=== PATIENT | male | born 1940 | race Caucasian/White ===

== ENCOUNTER 2021-02-07 09:54 | Outpatient (REF) | payer MEDICARE, SELFPAY ==
[2021-02-07 11:03] LABS: MANUAL DIFF FLAG NO
[2021-02-07 11:26] LABS: Basophils Absolute Auto 0.1 X10*3/uL (0.0-0.2); Basophils Percent Auto 1.3 % (0-2); Eosinophils Absolute Auto 0.2 X10*3/uL (0.0-0.4); Eosinophils Percent Auto 2.4 % (0-4); Hematocrit 44.3 % (42-52); Hemoglobin 14.5 g/dl (14.0-18.0); Imm Gran Abs Auto 0.03 X10*3/uL (0.00-0.03); Imm Gran Pct Auto 0.4 % (0.0-0.4); Lymphocytes Absolute Auto 1.2 X10*3/uL (1.2-4.9); Lymphocytes Percent Auto 18.4 % (20-40); Mean Corpuscular HGB Conc 32.7 g/dl (31.0-36.0); Mean Corpuscular Hemoglobin 31.3 pg (27.0-33.0); Mean Corpuscular Volume 95.5 fL (80-98); Mean Platelet Volume 9.5 fL (9.4-12.4); Monocytes Absolute Auto 0.6 X10*3/uL (0.1-1.2); Monocytes Percent Auto 9.6 % (2-11); Neutrophils Absolute Auto 4.6 X10*3/uL (2.0-8.3); Neutrophils Percent Auto 67.9 % (45-73); Platelet Count 308 X10*3/uL (160-400); Red Blood Count 4.64 X10*6/uL (4.60-5.80); Red Cell Distribution Width 13.5 % (11.0-16.0); White Blood Count 6.7 X10*3/uL (4.8-10.8)
[2021-02-07 11:32] LABS: Alanine Aminotransferase 16 U/L (0-40); Albumin Level 4.4 g/dL (3.5-5.0); Alkaline Phosphatase 70 U/L (39-117); Anion Gap 14 (12-20); Aspartate Amino Transferase 17 U/L (5-37); B Type Natriuretic Peptide 345 pg/mL (<100); Bilirubin Total 0.6 mg/dL (0.0-1.0); Blood Urea Nitrogen 25 mg/dL (9-16); Calcium 9.7 mg/dL (8.4-10.2); Carbon Dioxide 23 mmol/L (22-29); Chloride 106 mmol/L (96-108); Estimated Glomerular Filt Rate 59; Glucose Random 110 mg/dL (60-115); Potassium 4.4 mmol/L (3.3-5.1); Sodium 139 mmol/L (135-145)
== END 2021-02-07 09:55 | disposition home or self-care (01) ==
LOC: HO.MANLDS 09:54
PROVIDERS: PCP Internal Medicine; Visit Provider Internal Medicine
DX: Z01.818 Encounter for other preprocedural examination (principal)
CPT/HCPCS: 36415; 80053; 83880; 85025

== ENCOUNTER 2021-03-05 10:16 | Outpatient (REF) | payer MEDICARE, SELFPAY ==
[2021-03-05 12:56] LABS: Glucose Urine UA NEG (NEG); Leukocyte Esterase Urine NEG (NEG); Nitrite Urine NEG (NEG); Urine Blood NEG (NEG); Urine Ketones NEG (NEG); Urine Protein TRACE MG/DL (NEG-TRACE)
[2021-03-05 12:57] LABS: Appearance Urine CLEAR; Color Urine YELLOW
== END 2021-03-05 10:17 | disposition home or self-care (01) ==
LOC: HO.MANLNP 10:16
PROVIDERS: PCP Internal Medicine; Visit Provider Internal Medicine
DX: R30.9 Painful micturition, unspecified (principal)
CPT/HCPCS: 81003

== ENCOUNTER 2022-03-02 11:01 | Outpatient (REF) | payer MEDICARE, SELFPAY ==
[2022-03-02 13:52] LABS: MANUAL DIFF FLAG NO
[2022-03-02 14:00] LABS: Basophils Absolute Auto 0.1 X10*3/uL (0.0-0.2); Basophils Percent Auto 1.7 % (0-2); Eosinophils Absolute Auto 0.2 X10*3/uL (0.0-0.4); Eosinophils Percent Auto 2.2 % (0-4); Hematocrit 42.6 % (42.0-52.0); Hemoglobin 13.8 g/dl (14.0-18.0); Imm Gran Abs Auto 0.01 X10*3/uL (0.00-0.03); Imm Gran Pct Auto 0.1 % (0.0-0.4); Lymphocytes Percent Auto 13.3 % (20-40); Mean Corpuscular HGB Conc 32.4 g/dl (31.0-36.0); Mean Corpuscular Hemoglobin 31.7 pg (27.0-33.0); Mean Corpuscular Volume 97.7 fL (80.0-98.0); Monocytes Absolute Auto 0.7 X10*3/uL (0.1-1.2); Monocytes Percent Auto 9.1 % (2-11); Neutrophils Absolute Auto 5.4 x10*3/uL (2.0-8.3); Neutrophils Percent Auto 73.6 % (45-73); Platelet Count 347 X10*3/uL (160-400); Red Blood Count 4.36 X10*6/uL (4.60-5.80); Red Cell Distribution Width 13.4 % (11.0-16.0); White Blood Count 7.3 X10*3/uL (4.8-10.8)
[2022-03-02 14:14] LABS: Estimated Average Glucose 100 mg/dL; Hemoglobin A1c % 5.1 %
[2022-03-02 14:42] LABS: Alanine Aminotransferase 15 U/L (0-40); Albumin Level 4.3 g/dL (3.5-5.0); Alkaline Phosphatase 69 U/L (39-117); Anion Gap 18 (12-20); Aspartate Amino Transferase 18 U/L (5-37); Bilirubin Total 0.5 mg/dL (0.0-1.0); Blood Urea Nitrogen 32 mg/dL (9-16); Calcium 9.6 mg/dL (8.4-10.2); Carbon Dioxide 24 mmol/L (22-29); Chloride 103 mmol/L (96-108); Estimated Glomerular Filt Rate 53; Glucose Random 111 mg/dL (60-115); Potassium 5.1 mmol/L (3.3-5.1); Sodium 140 mmol/L (135-145); Total Protein 7.1 g/dL (6.5-8.0)
[2022-03-04 05:03] LABS: Lyme Abs Screen <0.90 index
== END 2022-03-02 11:02 | disposition home or self-care (01) ==
LOC: HO.MANLDS 11:01
PROVIDERS: Visit Provider Internal Medicine
DX: I10 Essential (primary) hypertension (principal); R73.01 Impaired fasting glucose; T14.8XXA Other injury of unspecified body region, initial encounter; W57.XXXA Bitten or stung by nonvenomous insect and other nonvenomous arthropods, initial encounter
CPT/HCPCS: 36415; 80053; 83036; 85025; 86617; 86618

== ENCOUNTER 2022-06-01 09:24 | Outpatient (REF) | payer MEDICARE, SELFPAY ==
[2022-06-01 11:21] LABS: MANUAL DIFF FLAG NO
[2022-06-01 11:47] LABS: Basophils Absolute Auto 0.1 X10*3/uL (0.0-0.2); Basophils Percent Auto 1.6 % (0-2); Eosinophils Absolute Auto 0.1 X10*3/uL (0.0-0.4); Eosinophils Percent Auto 1.7 % (0-4); Hematocrit 44.2 % (42.0-52.0); Imm Gran Abs Auto 0.02 X10*3/uL (0.00-0.03); Imm Gran Pct Auto 0.3 % (0.0-0.4); Lymphocytes Absolute Auto 1.3 X10*3/uL (1.2-4.9); Lymphocytes Percent Auto 21.8 % (20-40); Mean Corpuscular HGB Conc 31.7 g/dl (31.0-36.0); Mean Corpuscular Volume 97.8 fL (80.0-98.0); Mean Platelet Volume 9.2 fL (9.4-12.4); Monocytes Absolute Auto 0.7 X10*3/uL (0.1-1.2); Monocytes Percent Auto 12.5 % (2-11); Neutrophils Absolute Auto 3.6 x10*3/uL (2.0-8.3); Neutrophils Percent Auto 62.1 % (45-73); Platelet Count 328 X10*3/uL (160-400); Red Blood Count 4.52 X10*6/uL (4.60-5.80); Red Cell Distribution Width 12.6 % (11.0-16.0); White Blood Count 5.8 X10*3/uL (4.8-10.8)
[2022-06-01 12:00] LABS: Alanine Aminotransferase 15 U/L (0-40); Albumin Level 4.2 g/dL (3.5-5.0); Alkaline Phosphatase 57 U/L (39-117); Anion Gap 11 (12-20); Aspartate Amino Transferase 15 U/L (5-37); Bilirubin Total 0.4 mg/dL (0.0-1.0); Blood Urea Nitrogen 35 mg/dL (9-16); Calcium 9.9 mg/dL (8.4-10.2); Carbon Dioxide 28 mmol/L (22-29); Chloride 108 mmol/L (96-108); Estimated Glomerular Filt Rate 58; Glucose Random 102 mg/dL (60-115); Potassium 5.1 mmol/L (3.3-5.1); Sodium 142 mmol/L (135-145)
[2022-06-01 12:29] LABS: Estimated Average Glucose 103 mg/dL; Hemoglobin A1c % 5.2 %
[2022-06-02 17:07] LABS: Lyme Abs Screen <0.90 index
== END 2022-06-01 09:25 | disposition home or self-care (01) ==
LOC: HO.MANLDS 09:24
PROVIDERS: Visit Provider Internal Medicine
DX: I10 Essential (primary) hypertension (principal); R73.01 Impaired fasting glucose; M25.50 Pain in unspecified joint
CPT/HCPCS: 36415; 80053; 83036; 85025; 86617; 86618

== ENCOUNTER 2023-12-03 09:05 | Outpatient (REF) | payer MEDICARE, SELFPAY ==
[2023-12-03 14:01] LABS: C Reactive Protein 0.35 mg/dL (< or = 0.50)
[2023-12-03 14:20] LABS: Erythrocyte Sedimentation Rate 6 MM/HR (0-15)
== END 2023-12-03 09:06 | disposition home or self-care (01) ==
LOC: HO.MANLDS 09:05
PROVIDERS: Visit Provider Internal Medicine
DX: M79.10 Myalgia, unspecified site (principal)
CPT/HCPCS: 36415; 82550; 85652; 86140

== ENCOUNTER 2024-03-29 14:44 | Emergency (ER) | payer MEDICARE, SELFPAY ==
--- NOTE | ~2024-03-29 | XR_ITS ---
EXAMINATION: XR KNEE, LEFT CLINICAL INFORMATION: Fall onto left knee COMPARISON: None available. TECHNIQUE: Four views of the left knee. FINDINGS: There is no fracture. Moderate to severe osteoarthritis of the medial compartment. Moderate osteoarthritis of the lateral compartment. Moderate osteoarthritis of patellofemoral compartment. Trace joint effusion. Arterial calcification present. Possible loose bodies within the intercondylar notch. XR/XR knee LT 4V IMPRESSION: 1. No acute abnormality. 2. Advanced osteoarthritis. Electronically signed by: Alex Waite MD 03/29/2024 04:42 PM EDT
[2024-03-29 15:00] VITALS: BP 103/52; BP 140/93; PULSE 53; PULSE 98; RESP 16; TEMP 36.8; O2SAT 94; O2SAT 97; BMI 31.7
--- NOTE | 2024-03-29 15:30 | ED_ITS ---
HPI - Fall General Chief Complaint: Fall Stated Complaint: FALL W/L KNEE PAIN,UNABLE TO STAND PER EMS Time Seen by Provider: 03/29/24 14:52 Source: patient, EMS and old records reviewed Mode of arrival: EMS Limitations: no limitations History of Present Illness ED Provider: IDALMIS HPI Narrative: 83 yo male from home hx of PPM, on blood thinners possibly due to afib denies hx of clots, HTN, arthritis, just had cortisone shot in L knee 6 weeks ago but it is wearing off and he has been having more pain and issues with the knee locking up and causing pain. Today he notes he was outside and slipped on the grass fell down just to both knees and due to this pain and difficulty walking at baseline he couldn't get himself up. EMS came and did lift assist but when they tried to walk around the house he had too much pain and wanted to get checked out. No headstrike or LOC. He was on the ground for 10 minutes he called for his . MD complaint: fall Onset (ago): minute(s) ([employer]) Fall from: standing Fall witnessed: no Place fall occurred: home Loss of consciousness: none Prolonged down time: no Symptoms prior to fall: none Context: tripped/slipped Location of injury - extremities: right: knee Severity: mild Quality: dull and aching Associated symptoms (after fall): unable to walk Related Data Allergies Allergy/AdvReac Type Severity Reaction Status Date / Time Unable to Assess Allergy Verified 03/29/24 15:03 Review of Systems Review of Systems: Constitutional : No Fever, No Chills ENT/Mouth : No Ear Pain, No Hoarseness, No sore throat Eyes: No Eye Pain, No Swelling, No Redness, No Foreign Body Cardiovascular : No Chest Pain, No SOB Respiratory : No Cough, No Dyspnea Gastrointestinal : No Nausea, No Vomiting, No Diarrhea, No abdominal Pain Genitourinary : No Dysuria, No Hematuria Musculoskeletal : positive joint pain, No Myalgias, pos Joint Swelling Skin : No Skin lacerations, No rash Neuro : No Weakness, No Numbness, No Loss of Consciousness, No Dizziness, No Headache All other systems reviewed and are negative PMFSH Past Medical History Attestation statement: The following information was validated with the patient. Source: old records reviewed Medical History (Updated 03/29/24 @ 16:03 by Ashely Honeycutt DO) Pacemaker Anticoagulated Hypertension Arthritis Social History Social History (Updated 03/29/24 @ 15:31 by Ashely Honeycutt DO) Patient Tobacco Use Status: Tobacco use Unknown Advance Directives: No Advance Directives Information Provided: No Physical Exam Vital Signs: Vital Signs: Last Vital Signs Temp 98.3 F 03/29/24 15:00 Pulse 53 03/29/24 15:00 Resp 16 03/29/24 15:00 BP 103/52 L 03/29/24 15:00 Pulse Ox 94 03/29/24 15:00 O2 Del Method Room Air 03/29/24 15:00 BMI result Body Mass Index 31.7 Appearance: Alert. Oriented X3. No acute distress. Eyes: Pupils equal, round and reactive to light. ENT: Pharynx normal. atraumatic Neck: Normal inspection. Neck supple. CVS: Normal heart rate and rhythm. Pulses normal. Respiratory: No respiratory distress. Breath sounds normal. Abdomen: Soft and nontender. Skin: Skin warm and dry. Normal skin color. Normal skin turgor. Extremities: No lower extremity edema. small joint effusion L knee but distal NV intact and normal ROM no hip pain abrasion to both anterior patella superficial Neuro: Oriented X 3. No motor deficit. No sensory deficit. Course Course Course Narrative: signed out to Dr. Magallanes pending xray and ambulation trial Medical Decision Making Medical Decision Making MDM Narrative: 83 yo male from home hx of PPM, on blood thinners possibly due to afib denies hx of clots, HTN, arthritis here s/p fall with L knee pain distal NV intact did not hit head no LOC at this time will need xray of L knee and ambulation trial. May need PT/C denies any preceding symptoms. Differential Diagnosis Differential Diagnoses: The differential diagnosis associated with the presentation includes traumatic effusion, arthritis, fracture Admission/Observation Consideration of admission/observation: Escalation of care including admission/observation considered Independent Interpretation I performed an independent interpretation of an: Plain X-Ray Independent Historian Clinical information obtained from an independent historian. History obtained from or confirmed by: EMS Discharge Plan Discharge Clinical Impression: Fall, Effusion of left knee Patient Disposition: Still a Patient Instructions: Fall Prevention (ED), Swollen Knee Joint (ED) Print Language: Ukrainian
--- OUTSIDE RECORDS SUMMARY | 2024-03-29 15:38 | XMS_ITS | Continuity of Care Document ---
Author Organization [facility] ter Address [address] [place] [id number]- Care Team Providers Care Outside Sales Advertising Executive Name Role Phone Helio Richardson DO Vik Primary Care Physician [phone] Encounter [facility] Date(s): 03/25/23 - 03/25/[address] [address] Discharge Disposition: A-D/C Home Attending Physician: Cris Agudelo MD Admitting Physician: Cris Agudelo MD Referring Physician: Cris Agudelo MD Allergies, Adverse Reactions, Alerts No Known Allergies Medications carvedilol 25 mg oral tablet TAKE 1 TABLET BY MOUTH TWICE A DAY Start Date: 03/25/23 Status: Ordered FUROSEMIDE 20 MG TABLET FUROSEMIDE 20 MG TABLET, TAKE 1 TABLET BY MOUTH EVERY DAY Start Date: 03/25/23 Status: Ordered losartan 100 mg oral tablet 1 tablet = 100 mg, By Mouth, Daily, # 90 tablet, 0 Refills, Maintenance, 03/25/23 7:51:00 EDT, Tablet, Partial fill upon patient request if the prescription is for a schedule II opioid drug. Start Date: 03/25/23 Status: Ordered Tiadylt ER 300 mg/24 hours oral capsule, extended release TAKE 1 CAPSULE BY MOUTH EVERY DAY Start Date: 03/25/23 Status: Ordered Trelegy Ellipta inhalation powder INHALE 1 PUFF EVERY DAY BY INHALATION ROUTE Start Date: 03/25/23 Status: Ordered Xarelto 20 mg oral tablet 1 tablet = 20 mg, By Mouth, Daily in PM, # 30 tablet, 0 Refills, Maintenance, 03/25/23 7:51:00 EDT,Tablet, Partial fill upon patient request if the prescription is for a schedule II opioid drug. Start Date: 03/25/23 Status: Ordered Problem List Condition Confirmation Course Effective Dates Status H ealth Status Informant Benign essential HTN Confirmed Active Lumbar degenerative disc disease Confirmed Active Hx of pleural empyema Confirmed Active Hearing impaired Confirmed Active Obese class I Confirmed Active Obesity Confirmed Active Osteoarthritis of right hip Confirmed Active AF (paroxysmal atrial fibrillation) Confirmed Active Results Radiology Reports * Exam Date Time Procedure Performing Provider Status 03/25/23 2:29 PM Chest 2 Views Frontal and Lat Dia Smauels; Auth (Verified) Notes: (Chest 2 Views Frontal and Lat) Reason For Exam: Postop RESULT: Chest 2 Views Frontal and Lat Chest 2 Views Frontal and Lat Reason: Postop; Clinical Question(s): Line Placement; Pneumothorax; Special Instructions: Patient may go unmonitored. Please keep film at back desk COMPARISON: 09/04/2008. FINDINGS: LINES AND TUBES: Triple-lead left subclavian pacer wires are intact. LUNGS AND PLEURA: Low lung volumes with mild basilar atelectasis. Lungs are otherwise clear with no consolidation. Chronic blunting of the right costophrenic angle, likely due to scarring. No pleural effusion. No pneumothorax. HEART, MEDIASTINUM AND YU: Mild prominence of the cardiac silhouette. Aorta is tortuous and partially calcified. BONES AND SOFT TISSUES: No acute abnormality. IMPRESSION: No acute abnormality. WSN: [id number] Ordering Physician: Cris Agudelo Dictated By: Toya Chavarria MD Dictated Date/Time: 03/25/23 5:03 pm Reviewed By: Toya Chavarria MD Signed By: Toya Chavarria MD Signed Date/Time: 03/25/23 5:03 pm Transcribed By: NICO Transcribed Date/Time: 03/25/23 5:02 pm Vital Signs Most recent to oldest [Reference Range]: 1 2 3 Height 180 cm (03/25/23 8:01 AM) Weight 98.7 kg (03/25/23 8:01 AM) Oxygen Saturation [94-100 %] 96 % (03/25/23 2:00 PM) 97 % (03/25/23 1:45 PM) 98 % (03/25/23 1:30 PM) Pulse Rate [55-90 bpm] 50 bpm *L* (03/25/23 8:01 AM) Body Mass Index [18.5-24.99 kg/m2] 30.46 kg/m2 *>HHI* (03/25/23 8:01 AM) Blood Pressure [90-138/55-84 mm Hg] 153/83mm Hg *H* (03/25/23 2:00 PM) 153/83mm Hg *H* (03/25/23 1:45 PM) 149/84mm Hg *H* (03/25/23 1:30 PM) Respiratory Rate [16-30 br/min] 16 br/min (03/25/23 2:00 PM) 21 br/min (03/25/23 1:45 PM) 13 br/min *L* (03/25/23 1:30 PM) Temperature [96.8-100.4 DegF] 97.3 DegF (03/25/23 8:01 AM) Mode of Delivery (Oxygen) Room air (03/25/23 12:15 PM) Room air (03/25/23 8:01 AM) Blood pressure sites Arm, left (03/25/23 8:01 AM) Temperature Route Temporal (03/25/23 8:01 AM) Dry Weight 98.7 kg (03/25/23 8:01 AM) Weight Obtained Via Standing scale (03/25/23 8:01 AM) Dry Weight Obtained Via Standing scale (03/25/23 8:01 AM) EKG study * Event Display: ECG 12-Lead Authored Date: Please click on pdf link to open report * Event Display: ECG 12-Lead Authored Date: Ventricular Rate: 68 BPM Atrial Rate: 68 BPM P-R Interval: 174 ms QRS Duration: 188 ms Q-T Interval: 456 ms QTC Calculation(Bazett): 484 ms P Hawkeye: 6 degrees R Hawkeye: -55 degrees T Hawkeye: 112 degrees AV dual-paced rhythm Abnormal ECG When compared with ECG of 04-NOV-2018 10:00, No significant change Confirmed by JUAN BROWER ([id number]) on 03/25/2023 12:39:22 PM Honobia: JUAN BROWER Note * Reginaldo GONZALEZ, Chary: PERFORM Event Display: Patient Education/Instruction Authored Date: [id number] Inpatient Adult Discharge Instructions [address] [address] [phone] Name: KELVIN MADRID : 1940 Visit: 03/25/2023 06:24:00 Current Date: 03/25/2023 14:12 Account: [id number] Inpatient Adult Discharge Instructions We would like to thank you for allowing us to assist you with your healthcare needs. The following includes patient education materials and information regarding your injury/illness. Our entire staffstrives to provide an excellent experience for our patients and their families. PLEASE ENSURE YOU FOLLOW-UP PER THE INSTRUCTIONS BELOW! ?? YOUR OPINION IS IMPORTANT TO US! Please complete the survey you may receive by mail or email. Your feedback will be used to make improvements to the healthcare experiences of our patients and their families. Surveys are administered by [employer], [employer]kicker. ?? If further treatment with your primary care physician or another doctor is recommended, it is important for you to keep the appointment. Call your primary care physician or return to the Emergency Department immediately if your condition worsens, fails to improve, or new symptoms develop. If you need to find a doctor, you can call [facility] Link for a referral at [phone] or toll free at [phone] or log in to [email or web address].. ?? [facility], in keeping with [facility] guidance, no longer requires face masks for staff, patientsor visitors in most situations. Similiar to time spent indoors at other locations, there is the chance that you were exposed to repiratory viruses during your time with us (such as flu or COVID-19). If you develop symptoms concerning for a viral respiratory infection, please seek testing (and treatment if indicated) from your medical provider or home test kit. ?? You can view and manage your care through the patient portal or by using a health care brett of your choosing. [employer] is a website that allows you to securely view your medical information including your hospital discharge summary, office visit summaries, medications and follow-up visits. You can also request appointments, renew medications, and request access to your medical information using a health care brett of your choosing, or just ask a question. You can enroll at [email or web address] or register during your next office visit. You have been discharged from [facility], Patient Care Unit: CARE. If you have any questions regarding these instructions after you leave, please call us and we will be happy to assist you. [facility] Your Care Team Attending Physician Cris Agudelo MD Reason for Admission SSS UPGRADE TO BIV HV2 ARR 7 AM Tests Performed Below is a partial list of the tests performed during your hospitalization. You may have had other tests and procedures not included in this list. Please discuss all test results with your provider. XR Chest 2 Views Frontal and Lat?-- Results Pending -- You will be contacted within 72 hours with your results. Primary Care Provider Helio Richardson DO Advance Directive Health Care Proxy on File Yes - Health Care Proxy Discharge Vitals Temperature: 97.3 DegF Height: 180 cm Pulse Rate:??50 bpm??Low Weight: 98.7 kg Respiratory Rate: 20 br/min Body Mass Index:??30.46 kg/m2??Critical Systolic Blood Pressure: 103 mm Hg Body surface area: 2.22 Diastolic Blood Pressure: 80 mm Hg ?? Oxygen Saturation: 98 % ?? Studies Pending All tests and labs ordered during this hospital stay have been completed unless listed below. Please discuss all pending results with your provider listed above in these instructions. ?? Chest 2 Views Frontal and Lat (XR Chest 2 Views Frontal and Lat) What to do next Instructions From Your Doctor Discharge Orders Discharge Medications KELVIN MADRID :1940 Visit Date:03/25/2023 Medications: Please continue your medications until treatment is completed or stopped by your provider. Medications not listed below should be discontinued. Discuss any questions related to medications with your provider. What How Much When Instructions Next Dose Unchanged Carvedilol (carvedilol 25 mg oral tablet) TAKE 1 TABLET BY MOUTH TWICE A DAY ?? resume Unchanged Diltiazem (Tiadylt ER 300 mg/ 24 hours oral capsule, extended release) TAKE 1 CAPSULE BY MOUTH EVERY DAY ?? resume Unchanged fluticasone/ umeclidinium/ vilanterol (Trelegy Ellipta inhalation powder) INHALE 1 PUFF EVERY DAY BY INHALATION ROUTE ?? resume Unchanged Losartan (losartan 100 mg oral tablet) 1 tab(s) Oral Daily resume Unchanged Miscellaneous Rx (FUROSEMIDE 20 MG TABLET) TAKE 1 TABLET BY MOUTH EVERY DAY ?? resume Unchanged rivaroxaban (Xarelto 20 mg oral tablet) 1 tab(s) Oral Daily in PM resume Test Results Below is a partial list of the most recent Laboratory test results done prior to this discharge. You may have had other tests and procedures not included in this list. Please discuss all test resultswith your provider. Allergies (NKA means No Known Allergies) NKA Problems Active Problems??(8) AF (paroxysmal atrial fibrillation)?? Benign essential HTN?? Hearing impaired?? Hx of pleural empyema?? Lumbar degenerative disc disease?? Obese class I?? Obesity?? Osteoarthritis of right hip?? Education Materials Below is the list of Educational Leaflet Providered with your Discharge Instructions. Discharge Instructions for Pacemaker Implantation?? Valuables and Belongings I fully understand and agree that [facility] accepts no responsibility for all my personal property including clothing, toilet articles, radios, jewelry, dentures, hearing aids, rings, money, or any other property that is in my possession or is brought to me after admission. I understand certain valuables may be placed in a hospital safe for a short period of time. I understand that the hospital is not liable for loss or damage due to accident, fire, or other natural occurrence while said property is in the safe. I accept full responsibility for any personal property that I keep with me, and will not hold the hospital responsible in case of loss or disappearance. I acknowledge that i have been encouraged to send valuables and belongings home. ? Other Discharge Information ? Pulmonary Rehab Status?? Pulmonary Rehab Discharge Status?? Respiratory Rate: 20 br/min ? Common Emergency Awareness Tips IS IT A STROKE? Act FAST and Check for these signs: FACE Does the face look uneven? ARM Does one arm drift down? SPEECH Does their speech sound strange? TIME Call at any sign of stroke ?? Heart Attack Signs Chest discomfort: Most heart attacks involve discomfort in the center of the chest and lasts more than a few minutes, or goes away and comes back. It can feel like uncomfortable pressure, squeezing, fullness or pain. Discomfort in upper body: Symptoms can include pain or discomfort in one or both arms, back, neck, jaw or stomach. Shortness of breath: With or without discomfort. Other signs: Breaking out in a cold sweat, nausea, or lightheaded. Remember, MINUTES DO MATTER. If you experience any of these heart attack warning signs, call to get immediate medical attention! ?? Smoking can increase your chances of developing chronic health problems and can cause harmful effects to other family members in your house. If you smoke, you are strongly encouraged to quit. Please call [facility] Link at [phone] or [phone] ([phone]) or log in to [email or web address] for referrals to smoking cessation programs. ?? 153 Suicide & Crisis Lifeline is available 01/02 if you or someone you know needs to find a reason to keep living. By calling 056 you'll be connected to a skilled, trained counselor at a crisis center in your area. INPATIENT DISCHARGE INSTRUCTIONS SIGNATURE PAGE JULIUSKELVIN Location:[facility] Registration Date and Time:03/25/2023 06:24 EDT Primary Care Physician: Helio Richardson DO, Attending Physician: Magnus OROZCO, Cris Esquivel, I KELVIN MADRID, have received the above patient education materials/instructions and have verbalized understanding. If ambulance or transport services are being used I further acknowledge being given a choice of service. ?? If you need to contact me, please call me at this number: . Patient/Local Hazmat Driver Name: Patient/Local Hazmat Driver Signature: Relationship to Patient: Witness Name/Signature: Date: * DiSanti Chary GONZALEZ: PERFORM Event Display: Patient Education Leaflets Authored Date: [id number] Discharge Instructions for Pacemaker Implantation ?? [address] Discharge Instructions for Pacemaker Implantation You have had a procedure to insert a pacemaker. Once inside your body, this small electronic devicehelps keep your heart from beating too slowly. It can help you feel better and have more energy. Asyou recover, follow all of the instructions you are given, including those below. Activity ??? Follow the instructions you are given about limiting your activity. ??? If you are fitted with an arm sling, keep your arm in the sling for as long as your healthcare provider tells you to. Most often, the sling will be removed the next day. But you may be told to sleep with it on for a period to prevent damage to the pacemaker while it's healing. ??? Don't raise your arm on the incision side above shoulder level or stretch your arm behind your back for as long as directed by your healthcare provider. This gives the leads a chance to secure themselves inside your heart. ??? Don'tdrive until your healthcare provider says it's OK. Have someone drive you home after the procedure.??? Ask your healthcare provider when you can expect to return to work. Depending on the type of work you do, you may have limits until your healthcare provider says it's OK for unrestricted activity. ??? You can still exercise. It's good for your body and your heart. Talk with your healthcare provider about an exercise plan and the types of exercise to limit the risk of damaging your pacemaker. ?? Other precautions ??? Follow your healthcare provider's directions carefully for wound care. If there is a dressing, ask whether you should remove it or keep it on until your next visit. Never put any creams, lotions, or products like peroxide on an incision unless your healthcare provider tells you to. Don't get the incision wet until your provider says it's OK. ??? Check your incision for signsof infection. These include redness, swelling, drainage, and warmth. Do this for 7 days, or as advised by your healthcare provider. ??? Before you have any treatment, tell all healthcare providers, including your dentist, that you have a pacemaker. ??? Carry your pacemaker ID card with you at all times. The card has information about your pacemaker. You can show this card if your pacemaker sets off a metal detector. Also show it so you don't need to be screened with a hand-held security wand. ??? Be careful when using cell phones and other electronic devices. Keep them at least 6 inches away from your pacemaker. It's safest to hold all cell phones to the ear farthest from your pacemaker or use the speaker mode setting. Don???t carry your phone or electronic device in your chest pocket, over the pacemaker. Experts advise carrying your cell phone and other electronics in a pocket or bag below your waist. Most cell phones and electronic devices don't interfere with pacemakers. But some cell phones and electronic devices, such as smartwatches and headphones, use powerful magnets for wireless charging that may interfere with how your pacemaker works. The magnet used for charging or other magnet accessories can also interfere with how your pacemaker works. These devices should be keptat least 12 inches away from your pacemaker when wirelessly charging or stored. Follow any other instructions given to you by your healthcare provider and from the maker of your pacemaker. ??? Stay away from strong magnets. An example is handheld security wands. Most pacemakers are now safe to use with MRI scanners. Ask your healthcare provider if you have such a pacemaker. ??? Stay away from strong electrical james. Examples are those made by radio transmitting towers, [employer] radios, and heavy-duty electrical equipment. ??? Don't lean over the open thomas of a running car. A running engine creates an electrical field. Most household and yard appliances will not cause any problems. If you useany large power tools, such as an [employer] cassandra architect, talk with your healthcare provider. ??? Follow any other instructions from your healthcare provider about other devices and procedures to stayaway from. ?? Follow-up care ??? See your bowling floor desk clerk in the next 7 to 10 days. Call and make an appointment as soon as you get home. ??? Make regular follow-up appointments with your healthcare provider. They will check the pacemaker to make sure it's working properly. ??? Plan on having periodic checkups withyour healthcare provider to assess the battery life of your pacemaker. Depending on your device andhow much your body uses the pacing functions of the pacemaker, you will need a new device generatorimplanted at some point. This is generally about every 5 to 7 years. ??? Some pacemakers have a built-in antenna that can send information such as trouble alerts over the Internet to your healthcare p rosemary. Ask your healthcare provider if your pacemaker is capable of remote monitoring. ?? When to call your healthcare provider Call your healthcare provider right away if you have any of these: ??? Dizziness ??? Lack of energy??? Twitching chest muscles ??? Rapid pulse or pounding heartbeat ??? Shortness of breath ??? Pain around your pacemaker ??? Fever above 100.4?? F (38?? C) or higher, or as directed by your healthcare provider ??? Other signs of infection such as redness, swelling, drainage, or warmth at the incision site ??? Your incision is not healing, or your incision separates or opens ??? Hiccups that won'tstop ??? Redness, severe swelling, drainage, worsening pain, bleeding, or warmth at the incision site ??? Your pacemaker generator feels loose or like it is wiggling in the pocket under the skin ?? Call 911 Call 911 if you have: ??? Chest pain ??? Trouble breathing ??? Fainting ?? Last Reviewed Date: 2022 ?? 7932-6988 [employer]. All rights reserved. This information is not intended as a substitute for professional medical care. Always follow your healthcare professional's instructions. ?? Patient Care team information Care Team Personnel Name: Helio Richardson DO Position: Reference Physician Member Role: PCP Address: Address: [address] [facility] [place] [address]- Name: Dacia Ziegler RN Position: [facility] RN Member Role: Primary Care Nurse Name: Dixie Harrington RN Position: [facility] RN Member Role: Primary Care Nurse Name: Krystle Conti RN Position: S RN Member Role: Primary Care Nurse Care Team Related Persons Name: CAREN MADRIDRIA Address: home [address] [place] [id number]
--- OUTSIDE RECORDS SUMMARY | 2024-03-29 15:38 | XMS_ITS | Continuity of Care Document ---
Author Organization [facility] ter Address [address] [place] [id number] Care Team Providers Care An Employee Sponsor Or Advocate And Name Role Phone Helio Richardson DO Vik Primary Care Physician Encounter [facility] Date(s): 02/26/21 - 02/27/[address] [address] Discharge Disposition: A-D/C Home Attending Physician: Jairo Guzmán MD Admitting Physician: Jairo Guzmán MD Referring Physician: Jairo Guzmán MD Allergies, Adverse Reactions, Alerts Substance Reaction Severity Status NKA Active Medications Acetaminophen = 1,000 mg, By Mouth, 3 times a day, 0 Refills, Maintenance, 02/14/21 9:06:00 EDT, Partial fill upon patient request if the prescription is for a schedule II opioid drug. Start Date: 02/14/21 Status: Ordered Acetaminophen Tablet 650 mg, Tablet, By Mouth, Every 6 hours, PRN for Temperature, greater than 101 F, Routine, 02/26/2113:55:00 EDT Start Date: 02/26/21 Stop Date: 03/28/21 Status: Ordered Colace sodium 100 mg oral capsule 100 mg, 1, capsule, By Mouth, Daily, # 20 capsule, Refills 0, Maintenance, 11/11/18 14:00:58 EDT Start Date: 11/11/18 Status: Ordered diltiazem 300 mg/24 hours oral capsule, extended release 300 mg, CD Capsule, By Mouth, 02/27/21 9:00:00 EDT Start Date: 02/27/21 Stop Date: 02/27/21 Status: Completed Flonase 1 sprays, Nares, Both, Daily, 0 Refills, Maintenance, 06/20/18 8:00:01 EST Start Date: 06/20/18 Status: Ordered ketorolac 0.4% ophthalmic solution 1 drops, Every 6 hours, left eye, 0 Refills, Maintenance, 02/26/21 10:45:00 EDT, Solution, Partial fill upon patient request if the prescription is for a schedule II opioid drug. Start Date: 02/26/21 Status: Ordered losartan 100 mg oral tablet 1 tablet = 100 mg, By Mouth, Daily at bedtime, # 30 tablet, 0 Refills, Maintenance, 06/20/18 7:59:11 EST, Tablet Start Date: 06/20/18 Status: Ordered oxyCODONE 5 mg oral tablet 5 mg, Tablet, By Mouth, Every 6 hours, PRN for Pain , Moderate, Routine, 02/26/21 14:02:00 EDT Start Date: 02/26/21 Stop Date: 03/05/21 Status: Ordered oxyCODONE 5 mg oral tablet 5 mg, 1, tablet, By Mouth, Every 6 hours, PRN, 1 tab every 6 hours prn pain moderate. No driving while taking this medication, # 30 tablet, Refills 0, Tot. Refills 0, Acute 03/05/21 14:03:00 EDT, Pain , Moderate, 02/26/21 14:03:00 EDT, Route to Pharm... Start Date: 02/26/21 Stop Date: 03/05/21 Status: Ordered Tiadylt ER 300 mg/24 hours oral capsule, extended release 1 capsule = 300 mg, By Mouth, Daily, 0 Refills, Maintenance, 02/14/21 9:08:00 EDT, Partial fill upon patient request if the prescription is for a schedule II opioid drug. Start Date: 02/14/21 Status: Ordered traMADol 50 mg oral tablet 1 tablet = 50 mg, By Mouth, Every 4 hours, 0 Refills, Maintenance, 06/20/18 7:57:05 EST Start Date: 06/20/18 Status: Ordered Xarelto 20 mg oral tablet 1 tablet = 20 mg, By Mouth, Daily before dinner, 0 Refills, Maintenance, 06/20/18 8:01:36 EST Start Date: 06/20/18 Status: Ordered ZyrTEC 10 mg oral tablet 1/2 tab, By Mouth, Daily at bedtime, # 30 tablet, 0 Refills, Maintenance, 02/14/21 9:09:00 EDT, Tablet, Partial fill upon patient request if the prescription is for a schedule II opioid drug. Start Date: 02/14/21 Status: Ordered Problem List Condition Effective Dates Status Health Status Inform ant Benign essential HTN(Confirmed) Active Lumbar degenerative disc disease(Confirmed) Active Hx of pleural empyema(Confirmed) Active Hearing impaired(Confirmed) Active Obesity(Confirmed) Active Osteoarthritis of right hip(Confirmed) Active AF (paroxysmal atrial fibrillation)(Confirmed) Active Procedures Procedure Date Related Diagnosis Body Site Status Arthrodesis, posterior or po sterolateral technique, single level; lumbar (with lateral transverse technique, when performed) Completed Results Radiology Reports * Exam Date Time Procedure Performing Provider Status 02/26/21 1:38 PM C-Arm > 1 Hour Natasha Luo; Auth (Verified) Notes: (C-Arm > 1 Hour) Reason For Exam: spinal stenosis RESULT: C-Arm > 1 Hour Lumbar Spine 2 or 3 Views, C-Arm > 1 Hour Reason: spinal stenosis; Special Instructions: FT 24.5sec TT 2hr 25min COMPARISON: None. FINDINGS: Fluoroscopy support was provided. There was no radiologist in attendance. 3 fluoroscopic images showing postsurgical changes of posterior decompression and fusion (possibly L3-L5). Evaluation of the hardware is limited due to motion degraded image quality. The alignment appears unremarkable. Technologist time: 2 hours and 25 minutes Fluoroscopy time: 24.5 seconds Cumulative dose: 22.22 mGy. IMPRESSION: Fluoroscopy support was provided. Please refer to the operative note for surgical details. WSN: [id number] Ordering Physician: Jairo Guzmán Dictated By: Toya Chavarria MD Dictated Date/Time: 02/26/21 4:23 pm Reviewed By: Toya Chavarria MD Signed By: Toya Chavarria MD Signed Date/Time: 02/26/21 4:23 pm Transcribed By: NICO Transcribed Date/Time: 02/26/21 4:21 pm * Exam Date Time Procedure Performing Provider Status 02/26/21 1:38 PM Lumbar Spine 2 or 3 Views Natasha Luo; Auth (Verified) Notes: (Lumbar Spine 2 or 3 Views) Reason For Exam: spinal stenosis RESULT: Lumbar Spine 2 or 3 Views Lumbar Spine 2 or 3 Views, C-Arm > 1 Hour Reason: spinal stenosis; Special Instructions: FT 24.5sec TT 2hr 25min COMPARISON: None. FINDINGS: Fluoroscopy support was provided. There was no radiologist in attendance. 3 fluoroscopic images showing postsurgical changes of posterior decompression and fusion (possibly L3-L5). Evaluation of the hardware is limited due to motion degraded image quality. The alignment appears unremarkable. Technologist time: 2 hours and 25 minutes Fluoroscopy time: 24.5 seconds Cumulative dose: 22.22 mGy. IMPRESSION: Fluoroscopy support was provided. Please refer to the operative note for surgical details. WSN: [id number] Ordering Physician: Jairo Guzmán Dictated By: Toya Chavarria MD Dictated Date/Time: 02/26/21 4:23 pm Reviewed By: Toya Chavarria MD Signed By: Toya Chavarria MD Signed Date/Time: 02/26/21 4:23 pm Transcribed By: NICO Transcribed Date/Time: 02/26/21 4:21 pm Vital Signs Most recent to oldest [Reference Range]: 1 2 3 Height 177.80 cm (02/27/21 8:31 AM) 177.80 cm (02/27/21 4:44 AM) 177.80 cm (02/27/21 12:56 AM) Oxygen Saturation [94-100 %] 99 % (02/27/21 8:31 AM) 96 % (02/27/21 4:44 AM) 95 % (02/27/21 12:56 AM) Pulse Rate [55-90 bpm] 73 bpm (02/27/21 8:45 AM) 73 bpm (02/27/21 8:31 AM) 73 bpm (02/27/21 4:44 AM) Blood Pressure [90-138/55-84 mm Hg] 138/66mm Hg (02/27/21 8:45 AM) 138/66mm Hg (02/27/21 8:31 AM) 122/54mm Hg (02/27/21 4:44 AM) Respiratory Rate [16-30 br/min] 18 br/min (02/27/21 3:47 PM) 18 br/min (02/27/21 1:42 PM) 18 br/min (02/27/21 1:42 PM) Temperature [96.8-100.4 DegF] 97.8 DegF (02/27/21 8:31 AM) 98.6 DegF (02/27/21 4:44 AM) 98.7 DegF (02/27/21 12:56 AM) Liters per Minute 2 L/min (02/26/21 5:58 PM) 2 L/min (02/26/21 3:00 PM) 6 L/min (02/26/21 2:15 PM) Mode of Delivery (Oxygen) Room air (02/27/21 8:31 AM) Room air (02/27/21 4:44 AM) Room air (02/27/21 12:56 AM) Blood pressure sites Arm, right (02/27/21 8:31 AM) Arm, left (02/27/21 4:44 AM) Arm, left (02/27/21 12:56 AM) Temperature Route Oral (02/27/21 8:31 AM) Oral (02/27/21 4:44 AM) Oral (02/27/21 12:56 AM) Dry Weight 104.55 kg (02/14/21 9:31 AM)
--- NOTE | 2024-03-29 17:41 | PC.NURSE ---
patient ambukated with walker
[2024-03-29 18:00] VITALS: BP 133/87; PULSE 74; RESP 16; TEMP 36.1; O2SAT 96
== END 2024-03-29 18:02 | disposition home or self-care (01) ==
PROVIDERS: Emergency Provider Emergency Medicine; PCP Internal Medicine
DX: M25.462 Effusion, left knee (principal); R26.81 Unsteadiness on feet; M25.562 Pain in left knee
CPT/HCPCS: 73564; 99282; 99283